=== PATIENT | male | born 1970 | race African-American/Black ===

== ENCOUNTER → 2016-08-14 | Outpatient (CLI) | payer OTHER ==
[~2016-08-14] MED LIST: COUMADIN PO; DARVOCET-N 1001 TAB PO; DICLOFENAC PO; FLEXERIL10 MG PO; MEDROL4 MG/DOSE- PO; NORCO 7.5/325 T1 TAB PO; SKELAXIN PO; VICODIN 5/1 TAB 5/50 PO
--- NOTE | ~2016-08-14 | US85 ---
[facility] A Service of [facility] & [facility] RADIOLOGY TEXT RESULTS PATIENT: DEVON HARDWICK LOCATION: CNIV : 70 UNIT #: [id number] AGE: [address]: Lynda Nayak APRN SEX: M ORDER DR: [id number] [facility] [address] [place], [place] [address] [id number] O MR#: [id number] Acc #: [id number] NAME: DEVON HARDWICK. : 1970 SEX: M STUDY DATE/TIME: 08/14/2016 14:48 UNIT: CNIV ROOM: STUDY DESCRIPTION: [facility] [place] [facility] Attending Physician: Lynda Nayak A.P.R.N. Referring Physician: Lynda Nayak A.P.R.N. Ordering Physician: Lynda Nayak A.P.R.N. Primary Care Physician: Lewis Blackmon M.D. MEDICAL IMAGING REPORT This report is preliminary unless electronic signature is present EXAMINATION Left lower extremity Doppler venous ultrasound. DATE 08/14/2016 at 14:48. HISTORY Left lower extremity throbbing pain since , predominately in the thigh and calf. COMPARISON None. FINDINGS Real-time stone-scale, color Doppler and spectral Doppler imaging was performed of the left lower extremity veins from the groin through the calf regions. The left common femoral, femoral, anterior and posterior tibial and peroneal veins demonstrate normal flow, compressibility and/or augmentation without evidence of deep venous thrombosis. IMPRESSION 1. No evidence of left lower extremity deep venous thrombosis. 2. The pertinent findings were conveyed to Dr. Blackmon on 08/14/2016 at 15:40. Dictated by... Janet French M.D. THIS IS AN ELECTRONICALLY VERIFIED REPORT Janet French M.D. at 08/17/2016 9:29 AM PIOTR/caitlin [facility] A Service of [facility] & [facility] RADIOLOGY TEXT RESULTS PATIENT: DEVON HARDWICK LOCATION: CNIV : 70 UNIT #: [id number] AGE: [address]: Lynda Nayak APRN SEX: M ORDER DR: TD: 08/14/2016 19:23 JOB #: [id number] MEDICAL IMAGING REPORT Page 1 of 1 COPY
== END | disposition home or self-care (01) ==
LOC: CNIV 14:19
DX: M79.605 Pain in left leg (principal); M79.89 Other specified soft tissue disorders
CPT/HCPCS: 93971